=== PATIENT | female | born 1950 | race Caucasian/White ===

== ENCOUNTER 2016-10-26 13:12 | Inpatient (IN) | payer MEDICARE ==
[~2016-10-26] VITALS: Ht 175.3 cm; Wt 158.5 kg
[2016-10-27] MEDS ORDERED: ASPI1TAB69 PO (11:10)
[2016-10-27] MEDS ORDERED: LISI10TA3 PO (11:10)
[2016-10-27] MEDS ORDERED: CETI1CAP2 PO (11:10)
[2016-10-27] MEDS ORDERED: ATEN50TA PO (11:10)
[2016-11-06] VITALS (9 sets, daily range): BP systolic 104–130; BP diastolic 44–92; PULSE 66–80; RESP 12–18; TEMP 97.8–99.5; O2SAT 94–99
[2016-11-06] MEDS ORDERED: AMINOCAPROIC ACID INJ 250 MG/ML 20 ML VIAL IV ONE (05:00)
[2016-11-06] MEDS ORDERED: ARTIFICIAL TEARS OPTH OINT 3.5 APPLIC/3.5 GM TUBO ONE (05:00)
[2016-11-06] MEDS ORDERED: CALCIUM CHLORIDE 10% SOLN 1 GRAM/10 ML SYR IV ONE (05:00)
[2016-11-06] MEDS ORDERED: PROTAMINE SULFATE 250 MG/25 ML VIAL IV ONE (05:00)
[2016-11-06] MEDS ORDERED: ceFAZolin INJ 1,000 MG VIAL IV ONE ×2 (05:00→12:40)
[2016-11-06] MEDS ORDERED: HEPARIN SODIUM - SQ 10,000 UNITS/ML VIAL SQ ONE (05:00)
[2016-11-06] MEDS ORDERED: GLYCOPYRROLATE 0.2 MG/ML VIAL IV ONE (05:00)
[2016-11-06] MEDS ORDERED: NITROGLYCERIN-DEXTROSE INJ 250 ML IV ONE (05:00)
[2016-11-06] MEDS ORDERED: VECURONIUM BROMIDE 10 MG VIAL IV ONE (05:00)
[2016-11-06] MEDS ORDERED: MAGNESIUM SULFATE 1000 MG/2 ML VIAL (PED) IV ONE (05:00)
[2016-11-06] MEDS ORDERED: PROPOFOL 1000 MG/100 ML INJ 100 ML IV ONE (05:00)
[2016-11-06] MEDS ORDERED: ACETAMINOPHEN 1000 MG/100 ML VIAL IV ONE (05:00)
[2016-11-06] MEDS ORDERED: INSULIN HUMAN REGULAR 1,000 UNITS/10 ML VIAL SQ PRN (06:30)
[2016-11-06] MEDS ORDERED: METOPROLOL TARTRATE 25 MG TAB PO PRN (06:30)
[2016-11-06] MEDS ORDERED: ceFAZolin 2 GM PREMIX 50 ML ONE (06:32)
[2016-11-06] MEDS ORDERED: HEPARIN SODIUM - SQ 10,000 UNITS/ML VIAL ONE (06:32)
[2016-11-06] MEDS ORDERED: VANCOMYCIN HCL 1000 MG VIAL ONE (06:32)
[2016-11-06] MEDS ORDERED: BACT800T5 PO (06:34)
[2016-11-06] MEDS: LACTATED RINGER'S 1000 ML IV SCH (06:44)
[2016-11-06] MEDS: SODIUM CHLORID 0.9% 500 ML IV SCH (07:30)
[2016-11-06] MEDS ORDERED: INSULIN REGULAR (IV INFUSION) 100 UNITS in SODIUM CHLORIDE 0.9% INJ 100 ML IV ONE (07:45)
[2016-11-06] MEDS ORDERED: HEPARIN SODIUM - IV 10,000 UNITS/10 ML VIAL ONE (08:07)
[2016-11-06] MEDS ORDERED: CUSTODIOL HTK IRR SOLN 1,000 ML ONE (08:07)
[2016-11-06] MEDS ORDERED: POTASSIUM CHLORIDE 20 MEQ/10 ML VIAL ONE (08:07)
[2016-11-06] MEDS ORDERED: LIDOCAINE HCL 2% 100 MG/5 ML SYRINGE ONE (08:08)
[2016-11-06] MEDS ORDERED: CALCIUM CHLORIDE 10% SOLN 1 GRAM/10 ML SYR ONE (08:08)
[2016-11-06] MEDS ORDERED: ALBUMIN HUMAN 25% 12.5 GM/50 ML BAGP IV ONE (08:08)
[2016-11-06] MEDS ORDERED: MANNITOL INJ 50 ML ONE (08:09)
[2016-11-06] MEDS ORDERED: SODIUM BICARBONATE 8.4% INJ 50 ML ONE (08:09)
[2016-11-06] MEDS ORDERED: BUPIVACAINE LIPOSO PF 1.3% INJ 20 ML, DEXAMETHASONE INJ 4 MG in SODIUM CHLORIDE 0.9% IN... PERIART SCH (08:15)
[2016-11-06] MEDS ORDERED: KETOROLAC TROMETHAMINE 30 MG/ML (IVP) VIAL IV PUSH PRN (14:45)
[2016-11-06] MEDS ORDERED: NITROGLYCERIN-DEXTROSE INJ 250 ML IV SCH (14:45)
[2016-11-06] MEDS ORDERED: PHENYLEPHRINE INJ 40 MG in DEXTROSE 5% IN WATE 500 ML INJ 496 ML IV SCH ×2 (14:45)
[2016-11-06] MEDS ORDERED: ACETAMINOPHEN 650 MG SUPP RECTAL PRN (14:45)
[2016-11-06] MEDS ORDERED: hydrALAZINE HCL 20 MG/ML VIAL IV PRN (14:45)
[2016-11-06] MEDS ORDERED: DEXTROSE 50% IN WATER 50 ML VIAL(D50) IV PUSH PRN (14:45)
[2016-11-06] MEDS ORDERED: CLEVIDIPINE INJ 50 ML IV SCH (14:45)
[2016-11-06] MEDS ORDERED: EPINEPHrine (1:1000) INJ 4 MG in DEXTROSE 5% IN WATER INJ 246 ML IV SCH ×2 (14:45)
[2016-11-06] MEDS ORDERED: DEXMEDETOMIDINE INJ 50 ML IV SCH (14:45)
[2016-11-06] MEDS ORDERED: METOPROLOL TARTRATE 5 MG/5 ML VIAL IV PUSH PRN (14:45)
[2016-11-06] MEDS ORDERED: ACETAMINOPHEN 325 MG TAB PO PRN (14:45)
[2016-11-06] MEDS ORDERED: POTASSIUM CHLORIDE 20 MEQ CONTROLLED RELEASE TAB PO PRN ×2 (14:45)
[2016-11-06] MEDS ORDERED: Post-op Orders (for Pharmacy) MISC OTHER ONE (14:45)
[2016-11-06] MEDS ORDERED: POTASSIUM CHLOR 20 MEQ PREMIX 100 ML IV PRN ×3 (14:45)
[2016-11-06] MEDS ORDERED: oxyCODONE/ACETAMINOPHEN 5 MG/325 MG TAB PO PRN (14:45)
[2016-11-06] MEDS ORDERED: MEPERIDINE HCL 25 MG/ML VIAL IV PRN (14:45)
[2016-11-06] MEDS ORDERED: ALBUMIN HUMAN 5% 12.5 GM/250 ML BOTTLE IV PRN (14:45)
[2016-11-06] MEDS ORDERED: MAGNESIUM SULFATE INJ 2 GM in SODIUM CHLORIDE 0.9% INJ 100 ML IV PRN ×4 (14:45)
[2016-11-06] MEDS ORDERED: CALCIUM CHLORIDE 10% 1 GRAM/10 ML VIAL IV PRN (14:45)
[2016-11-06] MEDS ORDERED: INSULIN REGULAR (IV INFUSION) 100 UNITS in SODIUM CHLORIDE 0.9% INJ 99 ML IV SCH (14:45)
[2016-11-06] MEDS ORDERED: fentaNYL CITRATE 1000 MCG/20 ML VIAL ONE (15:40)
[2016-11-06] MEDS ORDERED: MIDAZOLAM HCL 5 MG/5 ML VIAL ONE (15:40)
[2016-11-06] MEDS: ACETAMINOPHEN 1000 MG/100 ML VIAL IV SCH ×2 (16:00→20:54)
[2016-11-06] MEDS: DOBUTamine PREMIX DRIP 250 ML IV SCH (16:00)
[2016-11-06] MEDS ORDERED: LACTATED RINGER'S 1000 ML INJ 500 ML IV PRN (16:00)
[2016-11-06] MEDS ORDERED: DOPamine INJ PREMIX 500 ML IV SCH (16:00)
--- NOTE | 2016-11-06 16:05 | RADRPT ---
EXAM DATE/TIME: 11/06/2016 15:30 [facility] COMPARISON: No previous studies available for comparison. INDICATIONS : S/p cabg. MEDICAL HISTORY : Hypercholesterolemia. Hypertension SURGICAL HISTORY : Left breast surgery. ENCOUNTER: Initial ACUITY: 1 day PAIN SCORE: Non-responsive. LOCATION: Bilateral chest FINDINGS: ET tube, nasogastric tube, central catheter, chest drain and mediastinal drains are noted. The heart is prominent. Mediastinum is unremarkable. There is no pneumothorax. CONCLUSION: 1. Satisfactory postoperative appearance to the chest. The heart remains enlarged. 2. There is no pneumothorax. Marcos Emery MD FACR on November 06, 2016 at 16:01 Board Certified Radiologist. This report was verified electronically.
[2016-11-06] MEDS ORDERED: RESP: ALBUTEROL 2.5 MG/IPRATROPIUM 0.5 MG NEB (PRN) NEB (16:15)
[2016-11-06] MEDS ORDERED: RESP: RACEPINEPHRINE 2.25% 0.5 ML NEB NEB PRN (16:15)
--- NOTE | 2016-11-06 16:46 | PD.OP ---
cc: Iva Tristan MD; Wing Renita Castellanos MD Operative Report Date of Surgery: Nov 06, 2016 Preoperative Diagnosis: Postoperative Diagnosis: Procedure: 1. Minimally Invasive AVR with a 23 Mosaic Cinch Tissue Valve 2. Left Percutaneous Femoral Arterial and Venous Cannulation for CPB 3. Intercostal Nerve Block 4. Perclose Arterial Closure . Surgeon: Iva Tristan . Envelope Addresser(s): Brooke Forte . Operation and Findings: PREOPERATIVE DIAGNOSIS: 1. Severe Aortic Valve Stenosis 2. Morbid Obesity POSTOPERATIVE DIAGNOSIS: Same PRPCEDURE: 1. Minimally Invasive AVR with a 23 Mosaic Cinch Tissue Valve 2. Left Percutaneous Femoral Arterial and Venous Cannulation for CPB 3. Intercostal Nerve Block 4. Perclose Arterial Closure ANESTHESIA: JAY Ross MD DIRECTOR OF FIELD SALES: Carlos Alberto Schwab [facility] INDICATIONS: This is a 66 yo patient with severe Aortic stenosis presenting for surgical correction of their underlying cardiac pathology. PROCEDURE: Standard monitoring lines and Xiao catheter were placed. General anesthesia was induced. The patient was prepped and draped in a sterile fashion. Percutaneous access was gained to the left femoral artery and vein. Two Perclose devices were placed on the artery for later closure. The patient was heparinized for cardiopulmonary bypass. The left femoral artery was cannulated with a 19 Biomedicus arterial cannula percutaneously using standard seldinger technique. Similarly, the left femoral vein was cannulated with a 21 [employer] cannula under PB guidance and the tip was confirmed to be in the SVC. A 6 cm right anterior thoracotomy was performed and the 3rd rib was shingled. The right internal mammary artery and vein were ligated and divided. An Mitul retractor was placed followed by a small chest retractor. The pericardium was opened and a pericardial sling was created using interrupted 0 silk sutures. A small 1 cm incision was made at the 6th intercostal space and an LV vent and pericardial suction were placed through this access port. The LV vent was placed through the Right Superior Pulmonary Vein. The aorta was dissected posteriorly for crossclamp placement. 2 L of antegrade Custodiol cardioplegia was infused directly into the aortic root. Additionally, hand-held coronary cardioplegia cannula was used during the procedure. The patient was placed on cardiopulmonary bypass. An aortic cross-clamp was applied and the heart was arrested using cold blood cardioplegia delivered through a 14F catheter. The aorta was opened above the sinotubular ridge and the aortic valve was exposed. The right and left coronary was directly cannulated in addition and cardioplegia was administered. On opening the aorta, the valve appeared rheumatic with severely calcified with retracted cusps. The valve was resected as well as all annular calcification and was sized for a 23 mm Medtronic Mosaic Cinch tissue valve which was placed with 2-0 pledgeted Tycron valve sutures. The valve seated well. The aorta was closed with two layers of running 4-0 Prolene suture, the first in a horizontal mattress fashion and the second layer of simple running. The patient was systemically rewarmed. The heart was vigorously deaired with a clamp on. Ventricular pacing wire was placed. The clamp was removed, deairing continued. Upon achieving normothermia and intrinsic cardiac activity, the patient was weaned from cardiopulmonary bypass. Strict hemostasis was assured and Protamine administered. Decannulation was carried out without incident and both the femoral artery was closed with the Perclose devices. The entry site to the vein was closed with a horizontal mattress suture of 2-0 Silk following manual pressure. There was no adverse reaction. Intraoperative PB following the procedure showed a well-seated aortic valve with no perivalvular leak and preserved ventricular function. A-24 Japanese Keshav drain and a [address] were positioned in the pericardium and right pleural space respectively and secured with 2-0 silk sutures. The 3rd rib was reapproximated to the sternum using a [id number] 0 Ethibond stitch, and to the adjacent rib with a 0 Vicryl suture. Intercostal nerve block was preformed at the level of the incision as well as 2 rib spaces abpve and below using Exparel solution. The fascia and pectoralis were closed with 0 Vicryl. The subcutaneous tissue was closed using a running 3-0 Monocryl suture. The skin was closed with 4-0 Monocryl. Sterile dressings were placed. At the end of the operation, all sponge, instruments, and needle counts were correct. The patient was transferred to the CVICU in stable condition. Iva Tristan MD Nov 06, 2016 16:45
[2016-11-06] MEDS: ONDANSETRON HCL 4 MG/2 ML VIAL IV PUSH PRN (16:55)
[2016-11-06] MEDS: CALCIUM CHLORIDE INJ 1 GM in SODIUM CHLORIDE 0.9% INJ 100 ML IV PRN ×2 (16:55→21:32)
[2016-11-06] MEDS: PROCHLORPERAZINE INJ 10 MG/2 ML VIAL IV PRN (17:32)
[2016-11-06] MEDS ORDERED: PHENYLEPHRINE HCL 10 MG/ML VIAL ONE (17:54)
[2016-11-06] MEDS: MORPHINE SULFATE 4 MG/ML INJ IV PRN ×3 (19:32→22:53)
[2016-11-06] MEDS: ceFAZolin 2 GM PREMIX 50 ML IV SCH (19:32)
[2016-11-06] MEDS: AMIODARONE 200 MG TAB PO SCH (20:01)
[2016-11-06] MEDS: ALPRAZolam 0.25 MG TAB PO PRN (20:53)
[2016-11-06] MEDS: RESP: ALBUTEROL 2.5 MG/IPRATROPIUM 0.5 MG NEB (SCH) NEB (21:55)
[2016-11-07] VITALS (16 sets, daily range): BP systolic 107–142; BP diastolic 54–67; PULSE 68–78; RESP 18–20; TEMP 97.8–98.7; O2SAT 94–98
[2016-11-07] MEDS: SODIUM CHLORID 0.9% 500 ML IV SCH (00:10)
[2016-11-07] MEDS: DOBUTamine PREMIX DRIP 250 ML IV SCH (02:44)
[2016-11-07] MEDS: ACETAMINOPHEN 1000 MG/100 ML VIAL IV SCH ×2 (03:52→09:48)
[2016-11-07] MEDS: ceFAZolin 2 GM PREMIX 50 ML IV SCH ×3 (03:52→21:07)
[2016-11-07] MEDS: RESP: ALBUTEROL 2.5 MG/IPRATROPIUM 0.5 MG NEB (SCH) NEB ×3 (04:10→19:00)
[2016-11-07 04:42] LABS: MEAN CELL VOLUME 83.3 FL (80.0-100.0); MEAN CORPUSCULAR HEMOGLOBIN 27.4 PG (27.0-34.0); MEAN CORPUSCULAR HGB CONC 32.9 % (32.0-36.0); PLATELET COUNT 132 TH/MM3 (150-450); RED BLOOD COUNT 3.96 MIL/MM3 (4.00-5.30); RED CELL DISTRIBUTION WIDTH 14.5 % (11.6-17.2); REVIEW FLAG FINAL; WHITE BLOOD COUNT 15.9 TH/MM3 (4.0-11.0)
[2016-11-07 05:05] LABS: BICARBONATE 26.8 MEQ/L (21.0-32.0); MAGNESIUM 2.5 MG/DL (1.5-2.5); POTASSIUM 4.9 MEQ/L (3.5-5.1)
--- NOTE | 2016-11-07 05:19 | RADRPT ---
EXAM DATE/TIME: 11/07/2016 03:31 [facility] COMPARISON: CHEST SINGLE AP, November 06, 2016, 15:30. INDICATIONS : Status post CABG. MEDICAL HISTORY : Hypercholesterolemia. Hypertension. SURGICAL HISTORY : Left breast surgery. ENCOUNTER: Subsequent ACUITY: 2 days PAIN SCORE: Non-responsive. LOCATION: Bilateral chest FINDINGS: Central line superior vena cava. Right chest tube present without pneumothorax. Endotracheal tube and nasogastric tube have been removed. Cardiomegaly. No effusion. CONCLUSION: 1. Left central line tip in superior vena cava. Right chest tube present without pneumothorax. Cardio megaly. Basilar and dependent airspace disease in the lungs. Colby Sesay MD on November 07, 2016 at 5:14 Board Certified Radiologist. This report was verified electronically.
[2016-11-07] MEDS: PANTOPRAZOLE SOD 40 MG DELAYED RELEASE TAB PO SCH (05:56)
[2016-11-07] MEDS: ONDANSETRON HCL 4 MG/2 ML VIAL IV PUSH PRN (05:56)
[2016-11-07] MEDS: PROCHLORPERAZINE INJ 10 MG/2 ML VIAL IV PRN (06:07)
[2016-11-07] MEDS: LACTATED RINGER'S 1000 ML IV SCH (07:30)
[2016-11-07] MEDS: ALPRAZolam 0.25 MG TAB PO PRN ×2 (08:55→22:56)
[2016-11-07] MEDS: ASPIRIN 81 MG CHEW TAB PO SCH (08:55)
[2016-11-07] MEDS: AMIODARONE 200 MG TAB PO SCH ×2 (08:55→21:06)
[2016-11-07] MEDS ORDERED: GLUCAGON 1 MG/ML VIAL OTHER PRN (09:15)
[2016-11-07] MEDS ORDERED: DEXTROSE 50% IN WATER 50 ML VIAL(D50) IV PRN (09:15)
[2016-11-07] MEDS ORDERED: BISACODYL 10 MG SUPP RECTAL PRN (09:15)
[2016-11-07] MEDS ORDERED: SOD PHOSPHATE/SOD BIPHOSPHATE (ADULT) ENEMA 133ML RECTAL PRN (09:15)
--- NOTE | 2016-11-07 09:43 | PD.CAR.PN ---
CVT Progress Note CVT: POD #: 1 Subjective/Hospital Course: 66/ female with severe / eval in our UF office / elective Mini AVR PMH: morbid obesity BMI 53, anxiety, HTN, recent UTI ( on bactrim) surgery : 11/06 Mini AVR #23mm mosaic tissue valve extubated after surgery crystalloid 3000/ 750cc cell saver, EBL 250cc 11/07 up in chair, doing well , weaned off bety gtt this am recheck UA, then dc cain cath will need dietary consult aggressive pulm toileting Objective: GENERAL: SKIN: Warm and dry./ incision intact right upper chest wall/ CT x 2 right upper chest HEAD: Normocephalic. EYES: No scleral icterus. No injection or drainage. NECK: Supple, trachea midline. No JVD or lymphadenopathy. CARDIOVASCULAR: Regular rate and rhythm without murmurs, gallops, or rubs. general edema RESPIRATORY: Breath sounds equal bilaterally. No accessory muscle use. chest tube to wall suction, small intermittent air leak GASTROINTESTINAL: Abdomen soft, non-tender, nondistended. MUSCULOSKELETAL: No cyanosis, or edema. BACK: Nontender without obvious deformity. No CVA tenderness. Vital Signs Date Time Temp Pulse Resp B/P Pulse Ox O2 Delivery O2 Flow Rate FiO2 11/07/16 08:00 95 Nasal Cannula 4.00 11/07/16 07:37 94 Nasal Cannula 3.00 11/07/16 07:00 76 11/07/16 07:00 97.8 76 18 120/54 95 142/57 11/07/16 04:00 74 11/07/16 04:00 96 Nasal Cannula 4.00 11/07/16 02:16 20 11/07/16 01:35 20 11/07/16 00:00 98 Nasal Cannula 6.00 11/06/16 23:00 97.8 74 18 126/60 96 113/46 11/06/16 21:55 99 Nasal Cannula 5.00 11/06/16 21:30 18 11/06/16 20:00 98 Nasal Cannula 6.00 11/06/16 19:40 20 11/06/16 19:00 98.6 68 18 104/44 98 112/92 11/06/16 16:30 96 Nasal Cannula 6.00 11/06/16 16:25 96 Nasal Cannula 6.00 11/06/16 16:25 96 Nasal Cannula 6 11/06/16 16:20 94 Nasal Cannula 4.00 11/06/16 16:07 98 40 11/06/16 15:34 99 60 11/06/16 15:27 97 60 11/06/16 15:20 60 11/06/16 15:20 80 11/06/16 15:20 98.6 80 12 126/67 99 130/63 Labs: Laboratory Tests Test 11/07/16 04:35 White Blood Count 15.9 TH/MM3 (4.0-11.0) Red Blood Count 3.96 MIL/MM3 (4.00-5.30) Hemoglobin 10.9 GM/DL (11.6-15.3) Hematocrit 33.0 % (35.0-46.0) Mean Corpuscular Volume 83.3 FL (80.0-100.0) Mean Corpuscular Hemoglobin 27.4 PG (27.0-34.0) Mean Corpuscular Hemoglobin 32.9 % Concent (32.0-36.0) Red Cell Distribution Width 14.5 % (11.6-17.2) Platelet Count 132 TH/MM3 (150-450) Mean Platelet Volume 9.4 FL (7.0-11.0) Sodium Level 142 MEQ/L (136-145) Potassium Level 4.9 MEQ/L (3.5-5.1) Chloride Level 107 MEQ/L (98-107) Carbon Dioxide Level 26.8 MEQ/L (21.0-32.0) Anion Gap 8 MEQ/L (5-15) Blood Urea Nitrogen 23 MG/DL (7-18) Creatinine 1.11 MG/DL (0.50-1.00) Estimat Glomerular Filtration 49 ML/MIN (>89) Rate Random Glucose 102 MG/DL (74-106) Calcium Level 8.0 MG/DL (8.5-10.1) Magnesium Level 2.5 MG/DL (1.5-2.5) Result Diagram: 11/07/1643411/07/16434 Telemetry: NSR (1) Aortic stenosis (2) S/P AVR (aortic valve replacement) Plan: ASA pulm toileting OOB, ambulate CM to eval discharge planning (3) Hypertension Plan: weaned off bety/ start low dose BB this pm (4) Morbid obesity with BMI of 50.0-59.9, adult Plan: dietary consult heart healthy diet (5) Blood loss anemia Plan: HGB 10.9/ will monitor Jennifer Shaikh Nov 07, 2016 09:43
[2016-11-07] MEDS ORDERED: PILL SPLITTER OTHER PRN (09:45)
[2016-11-07 09:57] LABS: BLOOD, URINE NEG (NEG); GLUCOSE,URINE NEG (NEG); HYALINE CAST, URINE 2 /lpf (RARE); KETONE, URINE TRACE mg/dL (NEG); MUCUS URINE FEW /lpf (OCC); NITRITE,URINE NEG (NEG); PH, URINE 5.5 (5.0-8.5); SQUAMOUS EPITHELIAL CELL URINE <1 /hpf (0-5); URINE COLOR YELLOW (YELLW/STRAW)
[2016-11-07 09:59] LABS: COMMENT (UR) CATH-CULT NOT IND; CULTURE IF INDICATED CATH CULTURE NOT IND
[2016-11-07] MEDS: INSULIN ASPART SUPPLEMENTAL SCALE SQ SCH ×4 (10:00→21:07)
[2016-11-07] MEDS: METOCLOPRAMIDE HCL 10 MG/2 ML VIAL IV SCH ×3 (11:48→22:56)
[2016-11-07] MEDS: diphenhydrAMINE HCL 25 MG CAP PO PRN (16:13)
[2016-11-07] MEDS: oxyCODONE/ACETAMINOPHEN 5 MG/325 MG TAB PO PRN (18:06)
[2016-11-07] MEDS: DOCUSATE SODIUM 100 MG CAP PO SCH (21:06)
[2016-11-07] MEDS: SENNOSIDES 8.6 MG TAB PO SCH (21:06)
[2016-11-07] MEDS: METOPROLOL TARTRATE 25 MG TAB PO SCH (21:07)
[2016-11-08] VITALS (29 sets, daily range): BP systolic 110–153; BP diastolic 55–68; PULSE 63–88; RESP 16–18; TEMP 97.4–98.7; O2SAT 93–99
[2016-11-08] MEDS: oxyCODONE/ACETAMINOPHEN 5 MG/325 MG TAB PO PRN ×2 (01:03→04:54)
[2016-11-08] MEDS: INSULIN ASPART SUPPLEMENTAL SCALE SQ SCH ×6 (02:00→22:00)
[2016-11-08] MEDS: ceFAZolin 2 GM PREMIX 50 ML IV SCH (04:46)
[2016-11-08] MEDS: METOCLOPRAMIDE HCL 10 MG/2 ML VIAL IV SCH (05:24)
[2016-11-08] MEDS: PANTOPRAZOLE SOD 40 MG DELAYED RELEASE TAB PO SCH (05:24)
[2016-11-08 06:28] LABS: AUTOMATED NEUTROPHIL # 13.5 TH/MM3 (1.8-7.7); BASOPHIL % 0.1 % (0.0-2.0); EOSINOPHIL % 0.2 % (0.0-4.0); HEMATOCRIT 29.9 % (35.0-46.0); HEMO FLAGS DIFF FINAL; LYMPH % 6.4 % (9.0-44.0); LYMPHOCYTE # 1.1 TH/MM3 (1.0-4.8); MEAN CELL VOLUME 84.2 FL (80.0-100.0); MEAN CORPUSCULAR HEMOGLOBIN 28.1 PG (27.0-34.0); MEAN CORPUSCULAR HGB CONC 33.4 % (32.0-36.0); MONO % 11.7 % (0.0-8.0); NEUT % 81.6 % (16.0-70.0); PLATELET COUNT 138 TH/MM3 (150-450); RED BLOOD COUNT 3.55 MIL/MM3 (4.00-5.30); RED CELL DISTRIBUTION WIDTH 14.9 % (11.6-17.2); WHITE BLOOD COUNT 16.6 TH/MM3 (4.0-11.0)
[2016-11-08 06:42] LABS: BICARBONATE 29.1 MEQ/L (21.0-32.0); MAGNESIUM 2.2 MG/DL (1.5-2.5); POTASSIUM 4.7 MEQ/L (3.5-5.1)
[2016-11-08] MEDS: LACTATED RINGER'S 1000 ML IV SCH (07:30)
[2016-11-08] MEDS: RESP: ALBUTEROL 2.5 MG/IPRATROPIUM 0.5 MG NEB (SCH) NEB ×3 (07:34→19:11)
--- NOTE | 2016-11-08 08:04 | EKG ---
Date Performed: 11/07/2016 Time Performed: 04:43:48 PTAGE: 66 years EKG: Sinus rhythm . Possible inferior infarct - age undetermined Abnormal ECG Compared to PREVIOUS TRACING , the criteria for the LVH is no longer evident. The criterial for the p ossible prior infarct is presently more convincing. PREVIOUS TRACIN10/27/2016 10.56 DOCTOR: Anisha Brown Interpretating Date/Time 11/08/2016 08:03:17
[2016-11-08] MEDS: ONDANSETRON HCL 4 MG/2 ML VIAL IV PUSH PRN (08:11)
[2016-11-08] MEDS: MAGNESIUM HYDROXIDE SUSP 30 ML CUP PO SCH ×2 (09:00→09:40)
[2016-11-08] MEDS: MULTIVITAMINS/MINERALS THERAPEUTIC TAB PO SCH ×2 (09:00→09:39)
[2016-11-08] MEDS: POLYETHYLENE GLYCOL 17 GM PKG PO SCH ×2 (09:00→09:40)
[2016-11-08] MEDS: AMIODARONE 200 MG TAB PO SCH (09:38)
[2016-11-08] MEDS: METOPROLOL TARTRATE 25 MG TAB PO SCH ×2 (09:38→20:23)
[2016-11-08] MEDS: DOCUSATE SODIUM 100 MG CAP PO SCH ×2 (09:38→20:23)
[2016-11-08] MEDS: ASPIRIN 81 MG CHEW TAB PO SCH (09:39)
[2016-11-08] MEDS: PROCHLORPERAZINE INJ 10 MG/2 ML VIAL IV PRN (10:30)
[2016-11-08] MEDS ORDERED: CARDIOPLEGIC IRR 2,000 ML IRRIGATION ONE (12:00)
--- NOTE | 2016-11-08 12:44 | PD.CAR.PN ---
CVT Progress Note Subjective/Hospital Course: 66/ female with severe / eval in our UF office / elective Mini AVR PMH: morbid obesity BMI 53, anxiety, HTN, recent UTI ( on bactrim) surgery : 11/06 Mini AVR #23mm mosaic tissue valve extubated after surgery crystalloid 3000/ 750cc cell saver, EBL 250cc 11/07 up in chair, doing well , weaned off bety gtt this am recheck UA, then dc cain cath will need dietary consult aggressive pulm toileting 11/08 repeat UA ok did not want cain removed last evening, 2/2 severe nausea had some nausea and vomiting this am, some improvement with antiemetics eval meds hold amiodarone for now dc cain cath, ambulate / + 8 kg/ will need diuresis./ but will hold off for now with nausea/ vomiting chest tube 130cc/ 12 re-eval for possible removal later today Objective: GENERAL: SKIN: Warm and dry.incision intact right chest wall / HEAD: Normocephalic. EYES: No scleral icterus. No injection or drainage. NECK: Supple, trachea midline. No JVD or lymphadenopathy. CARDIOVASCULAR: Regular rate and rhythm without murmurs, gallops, or rubs. RESPIRATORY: Breath sounds equal bilaterally. No accessory muscle use. chest tube x 2 intact/ dressing changed / + air leak in chamber/ drained 123cc/ 12 hrs GASTROINTESTINAL: Abdomen soft, non-tender, nondistended. MUSCULOSKELETAL: No cyanosis, or edema. BACK: Nontender without obvious deformity. No CVA tenderness. Vital Signs Date Time Temp Pulse Resp B/P Pulse Ox O2 Delivery O2 Flow Rate FiO2 11/08/16 11:23 68 11/08/16 11:23 98.7 69 16 123/64 99 11/08/16 11:23 99 Nasal Cannula 3.00 11/08/16 11:23 68 11/08/16 10:55 98.6 69 16 110/55 93 11/08/16 10:36 67 11/08/16 09:11 70 11/08/16 08:25 98 Nasal Cannula 3.00 11/08/16 08:10 68 11/08/16 07:35 64 11/08/16 07:10 97.4 65 16 125/68 95 11/08/16 07:10 63 11/08/16 06:12 63 11/08/16 05:00 72 11/08/16 04:00 Nasal Cannula 3.00 40 11/08/16 04:00 72 11/08/16 03:00 98.1 66 153/64 95 11/08/16 03:00 68 11/08/16 02:00 74 11/08/16 01:00 76 11/08/16 00:13 Nasal Cannula 3.00 40 11/08/16 00:00 78 11/07/16 23:00 75 11/07/16 23:00 98.7 78 133/67 94 11/07/16 22:00 72 11/07/16 21:00 76 11/07/16 20:00 Nasal Cannula 3.00 40 11/07/16 20:00 76 11/07/16 19:00 97 Nasal Cannula 3.00 11/07/16 19:00 98.6 77 120/64 94 11/07/16 19:00 77 11/07/16 18:00 77 11/07/16 17:00 76 11/07/16 16:55 94 Nasal Cannula 2.00 11/07/16 16:00 72 11/07/16 15:30 94 Nasal Cannula 2.00 11/07/16 15:30 98.3 76 20 115/57 94 11/07/16 15:00 73 11/07/16 14:00 74 11/07/16 13:34 73 18 107/56 97 Labs: Laboratory Tests Test 11/08/16 05:30 White Blood Count 16.6 TH/MM3 (4.0-11.0) Red Blood Count 3.55 MIL/MM3 (4.00-5.30) Hemoglobin 10.0 GM/DL (11.6-15.3) Hematocrit 29.9 % (35.0-46.0) Mean Corpuscular Volume 84.2 FL (80.0-100.0) Mean Corpuscular Hemoglobin 28.1 PG (27.0-34.0) Mean Corpuscular Hemoglobin 33.4 % Concent (32.0-36.0) Red Cell Distribution Width 14.9 % (11.6-17.2) Platelet Count 138 TH/MM3 (150-450) Mean Platelet Volume 9.5 FL (7.0-11.0) Neutrophils (%) (Auto) 81.6 % (16.0-70.0) Lymphocytes (%) (Auto) 6.4 % (9.0-44.0) Monocytes (%) (Auto) 11.7 % (0.0-8.0) Eosinophils (%) (Auto) 0.2 % (0.0-4.0) Basophils (%) (Auto) 0.1 % (0.0-2.0) Neutrophils # (Auto) 13.5 TH/MM3 (1.8-7.7) Lymphocytes # (Auto) 1.1 TH/MM3 (1.0-4.8) Monocytes # (Auto) 1.9 TH/MM3 (0-0.9) Eosinophils # (Auto) 0.0 TH/MM3 (0-0.4) Basophils # (Auto) 0.0 TH/MM3 (0-0.2) CBC Comment DIFF FINAL Differential Comment Sodium Level 139 MEQ/L (136-145) Potassium Level 4.7 MEQ/L (3.5-5.1) Chloride Level 105 MEQ/L (98-107) Carbon Dioxide Level 29.1 MEQ/L (21.0-32.0) Anion Gap 5 MEQ/L (5-15) Blood Urea Nitrogen 33 MG/DL (7-18) Creatinine 1.14 MG/DL (0.50-1.00) Estimat Glomerular Filtration 48 ML/MIN (>89) Rate Random Glucose 117 MG/DL (74-106) Calcium Level 8.2 MG/DL (8.5-10.1) Magnesium Level 2.2 MG/DL (1.5-2.5) Result Diagram: 11/08/1652911/08/16529 (1) Aortic stenosis (2) S/P AVR (aortic valve replacement) Plan: ASA, BB pulm toileting OOB, ambulate CM to eval discharge planning (3) Hypertension Plan: low dose BB (4) Morbid obesity with BMI of 50.0-59.9, adult Plan: dietary consult heart healthy diet (5) Blood loss anemia Plan: HGB 10.9/ will monitor (6) Nausea & vomiting Plan: antiemetics/ hold amiodarone Jennifer Shaikh Nov 08, 2016 12:44
[2016-11-08] MEDS: METOCLOPRAMIDE HCL 10 MG/2 ML VIAL IV PRN (13:04)
[2016-11-08] MEDS ORDERED: ACETAMINOPHEN/HYDROcodone 325 MG/5 MG TAB PO PRN (13:45)
[2016-11-08] MEDS: ACETAMINOPHEN/HYDROcodone 325 MG/5 MG TAB PO PRN (20:23)
[2016-11-08] MEDS: SENNOSIDES 8.6 MG TAB PO SCH (20:23)
[2016-11-09] VITALS (33 sets, daily range): BP systolic 103–164; BP diastolic 50–86; PULSE 53–144; RESP 18–20; TEMP 98–99.4; O2SAT 93–100
[2016-11-09] MEDS: INSULIN ASPART SUPPLEMENTAL SCALE SQ SCH ×4 (02:00→21:00)
[2016-11-09] MEDS: ACETAMINOPHEN/HYDROcodone 325 MG/5 MG TAB PO PRN ×2 (02:20→20:09)
[2016-11-09] MEDS: PANTOPRAZOLE SOD 40 MG DELAYED RELEASE TAB PO SCH (04:46)
[2016-11-09] MEDS: ALPRAZolam 0.25 MG TAB PO PRN ×2 (05:11→20:06)
[2016-11-09 05:37] LABS: AUTOMATED NEUTROPHIL # 9.9 TH/MM3 (1.8-7.7); BASOPHIL % 0.2 % (0.0-2.0); EOSINOPHIL # 0.3 TH/MM3 (0-0.4); EOSINOPHIL % 2.6 % (0.0-4.0); HEMATOCRIT 29.1 % (35.0-46.0); HEMO FLAGS DIFF FINAL; LYMPH % 9.1 % (9.0-44.0); LYMPHOCYTE # 1.2 TH/MM3 (1.0-4.8); MEAN CELL VOLUME 84.3 FL (80.0-100.0); MEAN CORPUSCULAR HEMOGLOBIN 27.5 PG (27.0-34.0); MEAN CORPUSCULAR HGB CONC 32.6 % (32.0-36.0); MONO % 10.2 % (0.0-8.0); NEUT % 77.9 % (16.0-70.0); PLATELET COUNT 142 TH/MM3 (150-450); RED BLOOD COUNT 3.45 MIL/MM3 (4.00-5.30); RED CELL DISTRIBUTION WIDTH 14.8 % (11.6-17.2); WHITE BLOOD COUNT 12.7 TH/MM3 (4.0-11.0)
[2016-11-09] MEDS ORDERED: METOPROLOL TARTRATE 25 MG TAB PO SCH (05:45)
[2016-11-09 05:49] LABS: BICARBONATE 29.5 MEQ/L (21.0-32.0); POTASSIUM 4.5 MEQ/L (3.5-5.1)
--- NOTE | 2016-11-09 06:00 | RADRPT ---
EXAM DATE/TIME: 11/09/2016 04:15 [facility] COMPARISON: CHEST SINGLE AP, November 07, 2016, 3:31. INDICATIONS : Shortness of breath, possible pulmonary disease. MEDICAL HISTORY : Hypercholesterolemia. Hypertension SURGICAL HISTORY : None. ENCOUNTER: Subsequent ACUITY: 4 - 6 days PAIN SCORE: 0/10 LOCATION: Bilateral chest FINDINGS: Left central line tip in superior vena cava. Right-sided chest tube present without pneumothorax. Sli ght increase in left basilar airspace disease since November 07. Subsegmental right basilar opacity is s table. CONCLUSION: 1. Basilar airspace disease similar to November 07. Right chest tube and left central line unchanged. Colby Sesay MD on November 09, 2016 at 5:57 Board Certified Radiologist. This report was verified electronically.
[2016-11-09] MEDS: RESP: ALBUTEROL 2.5 MG/IPRATROPIUM 0.5 MG NEB (SCH) NEB (08:28)
[2016-11-09] MEDS: METOPROLOL TARTRATE 25 MG TAB PO SCH ×2 (09:00→20:06)
[2016-11-09] MEDS: POLYETHYLENE GLYCOL 17 GM PKG PO SCH (09:00)
[2016-11-09] MEDS: MAGNESIUM HYDROXIDE SUSP 30 ML CUP PO SCH (09:00)
[2016-11-09] MEDS: ONDANSETRON HCL 4 MG/2 ML VIAL IV PUSH PRN (09:06)
[2016-11-09] MEDS: DOCUSATE SODIUM 100 MG CAP PO SCH ×2 (09:17→20:07)
[2016-11-09] MEDS: MULTIVITAMINS/MINERALS THERAPEUTIC TAB PO SCH (09:17)
[2016-11-09] MEDS: ASPIRIN 81 MG CHEW TAB PO SCH (09:17)
[2016-11-09] MEDS ORDERED: POTASSIUM CHLORIDE 10 MEQ CAP PO ONE (14:15)
[2016-11-09] MEDS ORDERED: FUROSEMIDE 40 MG/4 ML VIAL IV PUSH ONE (14:15)
--- NOTE | 2016-11-09 14:19 | PD.CAR.PN ---
CVT Progress Note CVT: POD #: 2 Subjective/Hospital Course: 66/ female with severe / eval in our UF office / elective Mini AVR PMH: morbid obesity BMI 53, anxiety, HTN, recent UTI ( on bactrim) surgery : 11/06 Mini AVR #23mm mosaic tissue valve extubated after surgery crystalloid 3000/ 750cc cell saver, EBL 250cc 11/07 up in chair, doing well , weaned off bety gtt this am recheck UA, then dc cain cath will need dietary consult aggressive pulm toileting 11/08 repeat UA ok did not want cain removed last evening, 2/2 severe nausea had some nausea and vomiting this am, some improvement with antiemetics eval meds hold amiodarone for now dc cain cath, ambulate / + 8 kg/ will need diuresis./ but will hold off for now with nausea/ vomiting chest tube 130cc/ 12 re-eval for possible removal later today 11/09 #24cm chest tube removed/ # [address]/ vaseline gauze dressing applied still has small air leak, CXR no PTX this am / on suction pt had episode of afib last pm, resume po amiodarone recheck lytes in am gentle diuresis , still has some intermittent nausea Objective: Vital Signs Date Time Temp Pulse Resp B/P Pulse Ox O2 Delivery O2 Flow Rate FiO2 11/09/16 13:01 80 11/09/16 12:00 80 11/09/16 11:45 99.4 80 20 156/76 93 11/09/16 11:45 95 Nasal Cannula 3.00 11/09/16 11:01 90 11/09/16 10:00 86 11/09/16 09:00 80 11/09/16 08:45 98.9 53 20 103/57 94 11/09/16 08:45 95 Nasal Cannula 3.00 11/09/16 08:30 96 Nasal Cannula 4.00 11/09/16 08:26 98.2 80 20 153/78 99 11/09/16 08:00 72 11/09/16 07:00 68 11/09/16 06:00 138 11/09/16 05:00 78 11/09/16 04:50 144 11/09/16 04:00 74 11/09/16 03:31 96 Nasal Cannula 3.00 11/09/16 03:18 73 11/09/16 02:00 73 11/09/16 01:00 68 11/09/16 00:00 72 11/09/16 00:00 98.0 70 18 108/50 99 11/09/16 00:00 96 Nasal Cannula 3.00 11/08/16 23:00 72 11/08/16 22:00 73 11/08/16 21:00 78 11/08/16 20:00 74 11/08/16 20:00 95 Nasal Cannula 3.00 11/08/16 20:00 98.0 88 18 142/62 99 11/08/16 19:11 99 Nasal Cannula 3.00 11/08/16 19:00 66 11/08/16 18:06 70 11/08/16 17:45 99 Nasal Cannula 3.00 11/08/16 17:07 73 11/08/16 16:53 18 11/08/16 16:01 78 11/08/16 15:51 95 Nasal Cannula 3.00 11/08/16 15:51 76 11/08/16 15:51 98.0 78 16 144/64 99 11/08/16 14:16 78 Labs: Laboratory Tests Test 11/09/16 04:50 White Blood Count 12.7 TH/MM3 (4.0-11.0) Red Blood Count 3.45 MIL/MM3 (4.00-5.30) Hemoglobin 9.5 GM/DL (11.6-15.3) Hematocrit 29.1 % (35.0-46.0) Mean Corpuscular Volume 84.3 FL (80.0-100.0) Mean Corpuscular Hemoglobin 27.5 PG (27.0-34.0) Mean Corpuscular Hemoglobin 32.6 % Concent (32.0-36.0) Red Cell Distribution Width 14.8 % (11.6-17.2) Platelet Count 142 TH/MM3 (150-450) Mean Platelet Volume 9.4 FL (7.0-11.0) Neutrophils (%) (Auto) 77.9 % (16.0-70.0) Lymphocytes (%) (Auto) 9.1 % (9.0-44.0) Monocytes (%) (Auto) 10.2 % (0.0-8.0) Eosinophils (%) (Auto) 2.6 % (0.0-4.0) Basophils (%) (Auto) 0.2 % (0.0-2.0) Neutrophils # (Auto) 9.9 TH/MM3 (1.8-7.7) Lymphocytes # (Auto) 1.2 TH/MM3 (1.0-4.8) Monocytes # (Auto) 1.3 TH/MM3 (0-0.9) Eosinophils # (Auto) 0.3 TH/MM3 (0-0.4) Basophils # (Auto) 0.0 TH/MM3 (0-0.2) CBC Comment DIFF FINAL Differential Comment Sodium Level 138 MEQ/L (136-145) Potassium Level 4.5 MEQ/L (3.5-5.1) Chloride Level 102 MEQ/L (98-107) Carbon Dioxide Level 29.5 MEQ/L (21.0-32.0) Anion Gap 7 MEQ/L (5-15) Blood Urea Nitrogen 34 MG/DL (7-18) Creatinine 0.91 MG/DL (0.50-1.00) Estimat Glomerular Filtration 62 ML/MIN (>89) Rate Random Glucose 95 MG/DL (74-106) Calcium Level 8.2 MG/DL (8.5-10.1) Result Diagram: 11/09/1644911/09/16449 Telemetry: AFIB> NSR (1) Aortic stenosis (2) S/P AVR (aortic valve replacement) Plan: ASA, BB , amiodarone on left medial chest tube removal tomorrow chest tube removed, eval for pulm toileting gentle diuresis today OOB, ambulate CM to eval discharge planning (3) Hypertension Plan: increase BB (4) Morbid obesity with BMI of 50.0-59.9, adult Plan: dietary consult heart healthy diet (5) Blood loss anemia Plan: > 9.5 HGB 10.9/ will monitor (6) Nausea & vomiting Plan: antiemetics/ improving Jennifer Shaikh Nov 09, 2016 14:19
--- NOTE | 2016-11-09 14:21 | HHI.FF ---
Face to Face Verification Diagnosis: (1) Blood loss anemia (2) Aortic stenosis (3) Hypertension (4) Morbid obesity with BMI of 50.0-59.9, adult (5) S/P AVR (aortic valve replacement) Physical Therapy Order: Evaluate and Treat Home Health Nursing Order: Signs/symptoms of disease process Wound care and dressing changes Nursing assessment with vital signs Instructions: Incentive spirometry Q1 hr x 10, while awake, also use acapella device hourly whole awake Sternal Breast Bone Precautions: NO pushing or pulling, ( pt must use sternal pillow to support chest with all activities and with coughing ( takes up to 3 months breast bone to heal ) Daily incision care: ok to shower daily, no tub bath. Wash all incisions with liquid dial soap, clean wash cloth to each site, rinse and pat dry. Observe for any signs of infection, such as drainage which is dark yellow, franklin, green or foul smelling. Immediately report to the surgeon any drainage from the chest incision, or legs, and for any abnormal drainage from the chest tube sites. Notify surgeon if any temp >101.5 degrees F. When specialty dressing removed/ or if you do not have one, continue to shower daily as above, then rinse and pat incision dry and paint with betadine daily x 5 days. Allow steri strips to fall off if you have any. Avoid lotions, creams, salves, oils, etc. for the first month__ F/U appointment: as per [place] instructions: PCP in 2 weeks, CV surgeon 2weeks, Debridging Machine Operator 3-4 weeks For any questions regarding incisions/ dressing / meds / post op care or above Symptoms, Sunday 8am-5pm Heart & Vascular Surgery Office ( Dr. Tristan & Dr. Banegas), After Hours / Nights (5pm -8am) Weekends and Holidays Please call [facility] ([facility]) Charge Nurse Heart and Vascular Surgery patients *Special attention to sternal dressing Mandatory frequency Assess and evaluation, 4 days in a row The next week 3X week 2 times a week for 4 weeks 1 time a week for 5 weeks Schedule Heart and Vascular patients for full 60 day certification period Initial visit Review Open Heart Surgery Discharge Instructions (Sternal precautions, Activity, Elastic hose, Incision care, Driving, Incentive spirometry, Smoking, Admire, Work and other) Need Betadine to paint incision Medication reconciliation Importance of follow up care/ check on appointments Make calendar record temperature daily When to call [facility] nurse, review instructions, phone list Incentive Spirometry, demonstration Visit 1- Begin discharge instruction for patient family and/ or caregiver using teach back method- Signs and symptoms of infection Disease characteristics Medicines and side effects Foods and nutrition/ appetite Infection control/ hand washing/ hygiene Visit 2- Continue teaching Discharge instructions- include additional information on smoking cessation , sternal dressing (sternal vac) Visit 3- Continue teaching- Cough and deep breathing, incision monitoring. Choose my plate Visit 4- Continue teaching- Discuss limitations Discuss how they are feeling Discuss progress toward goals Remaining visits- continue teaching and monitoring I have seen patient Margaret Wray on 11/09/16. My clinical findings support the need for the requested home health care services because: Deconditioned w/ increased weakness I certify that my clinical findings support that this patient is homebound because: Post-op weakness Jennifer Shaikh Nov 09, 2016 14:21
[2016-11-09] MEDS: AMIODARONE 200 MG TAB PO SCH ×2 (15:26→20:06)
[2016-11-09] MEDS: SENNOSIDES 8.6 MG TAB PO SCH (20:07)
[2016-11-10] VITALS (29 sets, daily range): BP systolic 140–167; BP diastolic 68–82; PULSE 62–122; RESP 16–20; TEMP 97.7–98.8; O2SAT 94–100
[2016-11-10] MEDS: ACETAMINOPHEN/HYDROcodone 325 MG/5 MG TAB PO PRN ×2 (00:07→07:09)
[2016-11-10] MEDS: PANTOPRAZOLE SOD 40 MG DELAYED RELEASE TAB PO SCH (06:00)
[2016-11-10] MEDS: INSULIN ASPART SUPPLEMENTAL SCALE SQ SCH ×4 (07:00→21:00)
[2016-11-10] MEDS: ALPRAZolam 0.25 MG TAB PO PRN ×2 (07:09→21:39)
[2016-11-10] MEDS: ONDANSETRON HCL 4 MG/2 ML VIAL IV PUSH PRN ×2 (07:13→15:48)
[2016-11-10 07:20] LABS: BICARBONATE 33.3 MEQ/L (21.0-32.0); MAGNESIUM 2.3 MG/DL (1.5-2.5); POTASSIUM 4.5 MEQ/L (3.5-5.1)
[2016-11-10] MEDS: AMIODARONE 200 MG TAB PO SCH ×2 (08:26→21:38)
[2016-11-10] MEDS: METOPROLOL TARTRATE 25 MG TAB PO SCH ×2 (08:27→21:39)
[2016-11-10] MEDS: DOCUSATE SODIUM 100 MG CAP PO SCH ×2 (09:00→21:37)
[2016-11-10] MEDS: MAGNESIUM HYDROXIDE SUSP 30 ML CUP PO SCH (09:00)
[2016-11-10] MEDS: POLYETHYLENE GLYCOL 17 GM PKG PO SCH (10:30)
[2016-11-10] MEDS: ASPIRIN 81 MG CHEW TAB PO SCH (12:07)
[2016-11-10] MEDS: MULTIVITAMINS/MINERALS THERAPEUTIC TAB PO SCH (12:07)
[2016-11-10] MEDS: METOCLOPRAMIDE HCL 10 MG/2 ML VIAL IV PRN (14:24)
[2016-11-10] MEDS ORDERED: OXYGENTANK NAS.CANULA (17:16)
[2016-11-10] MEDS ORDERED: WALKER WHEELS/F1 MIS (17:16)
[2016-11-10] MEDS ORDERED: MISC-163 (17:16)
--- NOTE | 2016-11-10 17:23 | PD.CAR.PN ---
CVT Progress Note CVT: POD #: 3 Subjective/Hospital Course: 66/ female with severe / eval in our UF office / elective Mini AVR PMH: morbid obesity BMI 53, anxiety, HTN, recent UTI ( on bactrim) surgery : 11/06 Mini AVR #23mm mosaic tissue valve extubated after surgery crystalloid 3000/ 750cc cell saver, EBL 250cc 11/07 up in chair, doing well , weaned off bety gtt this am recheck UA, then dc cain cath will need dietary consult aggressive pulm toileting 11/08 repeat UA ok did not want cian removed last evening, 2/2 severe nausea had some nausea and vomiting this am, some improvement with antiemetics eval meds hold amiodarone for now dc cain cath, ambulate / + 8 kg/ will need diuresis./ but will hold off for now with nausea/ vomiting chest tube 130cc/ 12 re-eval for possible removal later today 11/09 #24cm chest tube removed/ # [address]/ vaseline gauze dressing applied still has small air leak, CXR no PTX this am / on suction pt had episode of afib last pm, resume po amiodarone recheck lytes in am gentle diuresis , still has some intermittent nausea 11/10 pt very emotional , still having some nausea will decrease amiodarone and narcotics, ultram for pain , check labs in am Klonopin at night for sleep , anxiety gentle diuresis did not pass 02 walk test will need 02 at home may need outpt workup for sleep study eval for possible dc over the weekend Objective: GENERAL: SKIN: Warm and dry.incision intact and well approximated left chest/ dressing to chest tube sites HEAD: Normocephalic. EYES: No scleral icterus. No injection or drainage. NECK: Supple, trachea midline. No JVD or lymphadenopathy. CARDIOVASCULAR: Regular rate and rhythm without murmurs, gallops, or rubs. RESPIRATORY: diminished in bases Breath sounds equal bilaterally. No accessory muscle use. GASTROINTESTINAL: Abdomen soft, non-tender, nondistended. MUSCULOSKELETAL: No cyanosis, or edema. BACK: Nontender without obvious deformity. No CVA tenderness. Vital Signs Date Time Temp Pulse Resp B/P Pulse Ox O2 Delivery O2 Flow Rate FiO2 11/10/16 07:38 95 Nasal Cannula 1.00 11/10/16 07:34 97.7 68 16 141/68 100 11/10/16 07:30 95 Nasal Cannula 2.00 11/10/16 07:30 116 11/10/16 07:30 98.8 116 20 167/82 95 11/10/16 05:00 66 11/10/16 04:00 70 11/10/16 03:38 100 Nasal Cannula 3.00 11/10/16 03:00 71 11/10/16 03:00 62 11/10/16 02:00 68 11/10/16 01:00 84 11/10/16 00:23 98.2 72 18 151/69 99 11/10/16 00:00 62 11/09/16 23:00 64 11/09/16 22:00 64 11/09/16 21:00 70 11/09/16 20:42 100 Nasal Cannula 3.00 11/09/16 20:30 150/66 11/09/16 20:29 100 Nasal Cannula 3.00 11/09/16 20:28 98.1 67 20 164/86 100 11/09/16 20:00 78 11/09/16 19:00 80 11/09/16 18:01 88 Labs: Laboratory Tests Test 11/10/16 05:55 Sodium Level 139 MEQ/L (136-145) Potassium Level 4.5 MEQ/L (3.5-5.1) Chloride Level 101 MEQ/L (98-107) Carbon Dioxide Level 33.3 MEQ/L (21.0-32.0) Anion Gap 5 MEQ/L (5-15) Blood Urea Nitrogen 29 MG/DL (7-18) Creatinine 0.89 MG/DL (0.50-1.00) Estimat Glomerular Filtration 64 ML/MIN (>89) Rate Random Glucose 109 MG/DL (74-106) Calcium Level 8.4 MG/DL (8.5-10.1) Magnesium Level 2.3 MG/DL (1.5-2.5) Result Diagram: 11/09/16 0450 11/10/16 0555 Telemetry: NSR (1) Aortic stenosis (2) S/P AVR (aortic valve replacement) Plan: ASA, BB , amiodarone left medial chest tube removed pulm toileting gentle diuresis today OOB, ambulate CM to eval discharge planning (3) Hypertension Plan: increase BB (4) Morbid obesity with BMI of 50.0-59.9, adult Plan: dietary consult heart healthy diet (5) Blood loss anemia Plan: > 9.5 HGB 10.9/ will monitor (6) Nausea & vomiting Plan: antiemetics/ decrease amiodarone, check amylase , lipase and lft in am Jennifer Shaikh Nov 10, 2016 17:23
[2016-11-10] MEDS ORDERED: POTASSIUM CHLORIDE 10 MEQ CONTROLLED RELEASE TAB PO ONE (17:30)
[2016-11-10] MEDS ORDERED: FUROSEMIDE 40 MG/4 ML VIAL IV PUSH ONE (17:30)
[2016-11-10] MEDS ORDERED: POTA10CA PO (17:34)
[2016-11-10] MEDS ORDERED: FURO1TAB60 PO (17:34)
[2016-11-10] MEDS ORDERED: ZOFR4TAB PO (17:34)
[2016-11-10] MEDS ORDERED: AMIO200T PO (17:34)
[2016-11-10] MEDS ORDERED: DOCU1CAP39 PO (17:34)
[2016-11-10] MEDS ORDERED: traMADol HCL 50 MG TAB PO PRN (18:00)
[2016-11-10] MEDS ORDERED: BISACODYL 10 MG SUPP RECTAL ONE (18:00)
[2016-11-10] MEDS ORDERED: clonazePAM 0.5 MG TAB PO PRN (18:00)
[2016-11-10] MEDS: SENNOSIDES 8.6 MG TAB PO SCH (21:37)
[2016-11-10] MEDS: traMADol HCL 50 MG TAB PO PRN (23:21)
[2016-11-11] VITALS (26 sets, daily range): BP systolic 117–153; BP diastolic 68–78; PULSE 66–140; RESP 16–20; TEMP 98.3–99; O2SAT 96–98
[2016-11-11 05:09] LABS: AUTOMATED NEUTROPHIL # 6.4 TH/MM3 (1.8-7.7); BASOPHIL # 0.1 TH/MM3 (0-0.2); EOSINOPHIL # 1.1 TH/MM3 (0-0.4); EOSINOPHIL % 11.4 % (0.0-4.0); HEMATOCRIT 29.7 % (35.0-46.0); HEMO FLAGS DIFF FINAL; LYMPH % 12.3 % (9.0-44.0); LYMPHOCYTE # 1.2 TH/MM3 (1.0-4.8); MEAN CELL VOLUME 83.4 FL (80.0-100.0); MEAN CORPUSCULAR HEMOGLOBIN 28.5 PG (27.0-34.0); MEAN CORPUSCULAR HGB CONC 34.1 % (32.0-36.0); MONO % 10.5 % (0.0-8.0); NEUT % 64.8 % (16.0-70.0); PLATELET COUNT 240 TH/MM3 (150-450); RED BLOOD COUNT 3.56 MIL/MM3 (4.00-5.30); RED CELL DISTRIBUTION WIDTH 14.9 % (11.6-17.2); WHITE BLOOD COUNT 9.9 TH/MM3 (4.0-11.0)
--- NOTE | 2016-11-11 05:21 | RADRPT ---
EXAM DATE/TIME: 11/11/2016 04:45 [place] COMPARISON: CHEST SINGLE AP, November 09, 2016, 4:15. INDICATIONS : Shortness of breath, possible pulmonary disease. MEDICAL HISTORY : Hypercholesterolemia. Hypertension SURGICAL HISTORY : None. ENCOUNTER: Subsequent ACUITY: 1 week PAIN SCORE: 0/10 LOCATION: Bilateral chest FINDINGS: Portable AP view of the chest demonstrates stable mild enlargement of the cardiac silhouette. Lungs a re underinflated and there is a stable opacity left base obscuring the left hemidiaphragm. No pneumot horax is visualized following right chest tube removal. CONCLUSION: Stable chest x-ray with nonspecific left basilar opacity and mild enlargement of the cardiac silhouet te. Hiren Hanna MD on November 11, 2016 at 5:19 Board Certified Radiologist. This report was verified electronically.
[2016-11-11 05:26] LABS: BICARBONATE 32.7 MEQ/L (21.0-32.0); POTASSIUM 4.1 MEQ/L (3.5-5.1)
[2016-11-11 05:28] LABS: INDIRECT BILIRUBIN 0.4 MG/DL (0.0-0.8); TOTAL BILIRUBIN ADULT 0.5 MG/DL (0.2-1.0)
[2016-11-11] MEDS: PANTOPRAZOLE SOD 40 MG DELAYED RELEASE TAB PO SCH (05:54)
[2016-11-11] MEDS: INSULIN ASPART SUPPLEMENTAL SCALE SQ SCH ×4 (05:55→21:13)
[2016-11-11] MEDS: ONDANSETRON HCL 4 MG/2 ML VIAL IV PUSH PRN (08:42)
[2016-11-11] MEDS: POLYETHYLENE GLYCOL 17 GM PKG PO SCH (08:42)
[2016-11-11] MEDS: MAGNESIUM HYDROXIDE SUSP 30 ML CUP PO SCH (08:42)
[2016-11-11] MEDS: AMIODARONE 200 MG TAB PO SCH ×2 (08:43→21:12)
[2016-11-11] MEDS: DOCUSATE SODIUM 100 MG CAP PO SCH ×2 (08:43→21:12)
[2016-11-11] MEDS: ASPIRIN 81 MG CHEW TAB PO SCH (08:43)
[2016-11-11] MEDS: METOPROLOL TARTRATE 25 MG TAB PO SCH (08:43)
[2016-11-11] MEDS: MULTIVITAMINS/MINERALS THERAPEUTIC TAB PO SCH (08:43)
--- NOTE | 2016-11-11 09:47 | PD.CAR.PN ---
CVT Progress Note Subjective/Hospital Course: 66/ female with severe / eval in our UF office / elective Mini AVR PMH: morbid obesity BMI 53, anxiety, HTN, recent UTI ( on bactrim) surgery : 11/06 Mini AVR #23mm mosaic tissue valve extubated after surgery crystalloid 3000/ 750cc cell saver, EBL 250cc 11/07 up in chair, doing well , weaned off bety gtt this am recheck UA, then dc cain cath will need dietary consult aggressive pulm toileting 11/08 repeat UA ok did not want cain removed last evening, 2/2 severe nausea had some nausea and vomiting this am, some improvement with antiemetics eval meds hold amiodarone for now dc cain cath, ambulate / + 8 kg/ will need diuresis./ but will hold off for now with nausea/ vomiting chest tube 130cc/ 12 re-eval for possible removal later today 11/09 #24cm chest tube removed/ # [address]/ vaseline gauze dressing applied still has small air leak, CXR no PTX this am / on suction pt had episode of afib last pm, resume po amiodarone recheck lytes in am gentle diuresis , still has some intermittent nausea 11/10 pt very emotional , still having some nausea will decrease amiodarone and narcotics, ultram for pain , check labs in am Klonopin at night for sleep , anxiety gentle diuresis did not pass 02 walk test will need 02 at home may need outpt workup for sleep study eval for possible dc over the weekend 11/11 Doing well Constipated Likely discharge home in am with O2 Objective: Vital Signs Date Time Temp Pulse Resp B/P Pulse Ox O2 Delivery O2 Flow Rate FiO2 11/11/16 08:47 98 Nasal Cannula 3.00 11/11/16 08:47 98.4 124 18 117/76 98 11/11/16 04:00 76 11/11/16 03:59 100 Nasal Cannula 3.00 11/11/16 03:00 68 11/11/16 02:00 66 11/11/16 01:00 66 11/11/16 00:15 100 Nasal Cannula 3.00 11/11/16 00:13 98.7 67 16 141/68 96 11/11/16 00:00 70 11/10/16 23:00 66 11/10/16 22:00 76 11/10/16 21:14 95 Nasal Cannula 2.00 11/10/16 21:11 98.5 79 16 149/74 96 11/10/16 21:08 96 Nasal Cannula 2.00 11/10/16 21:00 70 11/10/16 20:00 78 11/10/16 19:00 75 11/10/16 18:00 116 11/10/16 17:00 118 11/10/16 16:00 64 11/10/16 15:50 68 11/10/16 15:50 98.6 68 18 151/73 94 11/10/16 15:50 94 Nasal Cannula 2.00 11/10/16 15:00 68 11/10/16 14:00 64 11/10/16 13:00 64 11/10/16 12:00 66 11/10/16 11:00 94 Nasal Cannula 2.00 11/10/16 11:00 98.3 70 20 140/69 94 11/10/16 11:00 70 11/10/16 10:00 82 Labs: Laboratory Tests Test 11/11/16 04:35 White Blood Count 9.9 TH/MM3 (4.0-11.0) Red Blood Count 3.56 MIL/MM3 (4.00-5.30) Hemoglobin 10.1 GM/DL (11.6-15.3) Hematocrit 29.7 % (35.0-46.0) Mean Corpuscular Volume 83.4 FL (80.0-100.0) Mean Corpuscular Hemoglobin 28.5 PG (27.0-34.0) Mean Corpuscular Hemoglobin 34.1 % Concent (32.0-36.0) Red Cell Distribution Width 14.9 % (11.6-17.2) Platelet Count 240 TH/MM3 (150-450) Mean Platelet Volume 8.4 FL (7.0-11.0) Neutrophils (%) (Auto) 64.8 % (16.0-70.0) Lymphocytes (%) (Auto) 12.3 % (9.0-44.0) Monocytes (%) (Auto) 10.5 % (0.0-8.0) Eosinophils (%) (Auto) 11.4 % (0.0-4.0) Basophils (%) (Auto) 1.0 % (0.0-2.0) Neutrophils # (Auto) 6.4 TH/MM3 (1.8-7.7) Lymphocytes # (Auto) 1.2 TH/MM3 (1.0-4.8) Monocytes # (Auto) 1.0 TH/MM3 (0-0.9) Eosinophils # (Auto) 1.1 TH/MM3 (0-0.4) Basophils # (Auto) 0.1 TH/MM3 (0-0.2) CBC Comment DIFF FINAL Differential Comment Sodium Level 139 MEQ/L (136-145) Potassium Level 4.1 MEQ/L (3.5-5.1) Chloride Level 100 MEQ/L (98-107) Carbon Dioxide Level 32.7 MEQ/L (21.0-32.0) Anion Gap 6 MEQ/L (5-15) Blood Urea Nitrogen 26 MG/DL (7-18) Creatinine 0.88 MG/DL (0.50-1.00) Estimat Glomerular Filtration 64 ML/MIN (>89) Rate Random Glucose 101 MG/DL (74-106) Calcium Level 8.3 MG/DL (8.5-10.1) Total Bilirubin 0.5 MG/DL (0.2-1.0) Direct Bilirubin 0.1 MG/DL (0.0-0.2) Indirect Bilirubin 0.4 MG/DL (0.0-0.8) Aspartate Amino Transf 17 U/L (15-37) (AST/SGOT) Alanine Aminotransferase 16 U/L (10-53) (ALT/SGPT) Alkaline Phosphatase 67 U/L (45-117) Total Protein 6.0 GM/DL (6.4-8.2) Albumin 2.5 GM/DL (3.4-5.0) Amylase Level 43 U/L (25-115) Lipase 155 U/L (73-393) Result Diagram: 11/11/1643411/11/16434 (1) Aortic stenosis (2) S/P AVR (aortic valve replacement) Plan: ASA, BB , amiodarone left medial chest tube removed pulm toileting gentle diuresis today OOB, ambulate CM to eval discharge planning (3) Hypertension Plan: increase BB (4) Morbid obesity with BMI of 50.0-59.9, adult Plan: dietary consult heart healthy diet (5) Blood loss anemia Plan: > 9.5 HGB 10.9/ will monitor (6) Nausea & vomiting Plan: antiemetics/ decrease amiodarone, check amylase , lipase and lft in am Iva Tristan MD Nov 11, 2016 09:47
[2016-11-11] MEDS: ALPRAZolam 0.25 MG TAB PO PRN (13:00)
[2016-11-11] MEDS: PROCHLORPERAZINE INJ 10 MG/2 ML VIAL IV PRN (13:00)
[2016-11-11] MEDS ORDERED: METOPROLOL TARTRATE 25 MG TAB PO ONE (17:27)
[2016-11-11] MEDS: METOPROLOL TARTRATE 50 MG TAB PO SCH (21:12)
[2016-11-11] MEDS: SENNOSIDES 8.6 MG TAB PO SCH (21:12)
[2016-11-11] MEDS: traMADol HCL 50 MG TAB PO PRN (22:53)
[2016-11-12] VITALS (21 sets, daily range): BP systolic 123–146; BP diastolic 60–81; PULSE 62–104; RESP 17–18; TEMP 97.4–98.6; O2SAT 90–100
--- NOTE | 2016-11-12 00:08 | EKG ---
Date Performed: 11/11/2016 Time Performed: 10:54:22 PTAGE: 66 years EKG: Sinus tachycardia. Possible atrial flutter Inferior/lateral ST-T changes may be due to myoc ardial ischemia Abnormal ECG PREVIOUS TRACING : 11/07/2016 04.43 DOCTOR: Carrie Hebert Interpretating Date/Time 11/12/2016 00:07:14
[2016-11-12] MEDS: PANTOPRAZOLE SOD 40 MG DELAYED RELEASE TAB PO SCH (06:00)
[2016-11-12] MEDS: INSULIN ASPART SUPPLEMENTAL SCALE SQ SCH ×3 (06:52→16:00)
[2016-11-12] MEDS: MAGNESIUM HYDROXIDE SUSP 30 ML CUP PO SCH (08:59)
[2016-11-12] MEDS: POLYETHYLENE GLYCOL 17 GM PKG PO SCH (08:59)
[2016-11-12] MEDS: MULTIVITAMINS/MINERALS THERAPEUTIC TAB PO SCH (09:00)
[2016-11-12] MEDS: AMIODARONE 200 MG TAB PO SCH (09:00)
[2016-11-12] MEDS: METOPROLOL TARTRATE 50 MG TAB PO SCH (09:00)
[2016-11-12] MEDS: diphenhydrAMINE HCL 25 MG CAP PO PRN (09:00)
[2016-11-12] MEDS: DOCUSATE SODIUM 100 MG CAP PO SCH (09:00)
[2016-11-12] MEDS: ASPIRIN 81 MG CHEW TAB PO SCH (09:00)
--- NOTE | 2016-11-12 09:28 | PD.CAR.PN ---
CVT Progress Note Subjective/Hospital Course: 66/ female with severe / eval in our UF office / elective Mini AVR PMH: morbid obesity BMI 53, anxiety, HTN, recent UTI ( on bactrim) surgery : 11/06 Mini AVR #23mm mosaic tissue valve extubated after surgery crystalloid 3000/ 750cc cell saver, EBL 250cc 11/07 up in chair, doing well , weaned off bety gtt this am recheck UA, then dc cain cath will need dietary consult aggressive pulm toileting 11/08 repeat UA ok did not want cain removed last evening, 2/2 severe nausea had some nausea and vomiting this am, some improvement with antiemetics eval meds hold amiodarone for now dc cain cath, ambulate / + 8 kg/ will need diuresis./ but will hold off for now with nausea/ vomiting chest tube 130cc/ 12 re-eval for possible removal later today 11/09 #24cm chest tube removed/ # [address]/ vaseline gauze dressing applied still has small air leak, CXR no PTX this am / on suction pt had episode of afib last pm, resume po amiodarone recheck lytes in am gentle diuresis , still has some intermittent nausea 11/10 pt very emotional , still having some nausea will decrease amiodarone and narcotics, ultram for pain , check labs in am Klonopin at night for sleep , anxiety gentle diuresis did not pass 02 walk test will need 02 at home may need outpt workup for sleep study eval for possible dc over the weekend 11/11 Doing well Constipated Likely discharge home in am with O2 11/12 Doing well Discharge home Objective: Vital Signs Date Time Temp Pulse Resp B/P Pulse Ox O2 Delivery O2 Flow Rate FiO2 11/12/16 08:33 97 21 11/12/16 06:00 76 11/12/16 05:00 100 11/12/16 04:00 96 11/12/16 03:37 Nasal Cannula 2.00 40 11/12/16 03:35 98.2 90 144/70 98 11/12/16 03:00 95 11/12/16 02:00 98 11/12/16 01:00 100 11/12/16 00:00 104 11/11/16 23:33 96 Nasal Cannula 2.00 11/11/16 23:00 98.3 81 153/72 97 11/11/16 23:00 108 11/11/16 22:14 Nasal Cannula 2.00 11/11/16 22:00 112 11/11/16 21:00 118 11/11/16 20:00 99.0 135 20 117/69 96 11/11/16 20:00 136 11/11/16 20:00 96 Nasal Cannula 2.00 11/11/16 19:00 130 11/11/16 18:00 130 11/11/16 17:00 140 11/11/16 16:30 97 Nasal Cannula 3.00 11/11/16 16:30 98.3 123 18 138/78 97 11/11/16 16:00 118 11/11/16 15:00 122 11/11/16 14:00 116 11/11/16 13:00 116 11/11/16 12:00 114 11/11/16 11:30 114 18 128/70 98 11/11/16 11:30 98 Nasal Cannula 3.00 11/11/16 11:00 116 11/11/16 10:00 120 Result Diagram: 11/11/16 0435 11/11/16 0435 (1) Aortic stenosis (2) S/P AVR (aortic valve replacement) Plan: ASA, BB , amiodarone left medial chest tube removed pulm toileting gentle diuresis today OOB, ambulate CM to eval discharge planning (3) Hypertension Plan: increase BB (4) Morbid obesity with BMI of 50.0-59.9, adult Plan: dietary consult heart healthy diet (5) Blood loss anemia Plan: > 9.5 HGB 10.9/ will monitor (6) Nausea & vomiting Plan: antiemetics/ decrease amiodarone, check amylase , lipase and lft in am Iva Tristan MD Nov 12, 2016 09:28
--- NOTE | 2016-11-12 09:29 | HHI.DS ---
Discharge Summary Admission Date Nov 06, 2016 at 05:34 Discharge Date: Nov 12, 2016 Admitting Diagnosis CBC/BMP: 11/11/16 0435 11/11/16 0435 Significant Findings Laboratory Tests Test 11/10/16 11/11/16 05:55 04:35 Carbon Dioxide Level 33.3 MEQ/L 32.7 MEQ/L (21.0-32.0) (21.0-32.0) Blood Urea Nitrogen 29 MG/DL (7-18) 26 MG/DL (7-18) Estimat Glomerular Filtration 64 ML/MIN (>89) 64 ML/MIN (>89) Rate Random Glucose 109 MG/DL (74-106) Calcium Level 8.4 MG/DL 8.3 MG/DL (8.5-10.1) (8.5-10.1) Red Blood Count 3.56 MIL/MM3 (4.00-5.30) Hemoglobin 10.1 GM/DL (11.6-15.3) Hematocrit 29.7 % (35.0-46.0) Monocytes (%) (Auto) 10.5 % (0.0-8.0) Eosinophils (%) (Auto) 11.4 % (0.0-4.0) Monocytes # (Auto) 1.0 TH/MM3 (0-0.9) Eosinophils # (Auto) 1.1 TH/MM3 (0-0.4) Total Protein 6.0 GM/DL (6.4-8.2) Albumin 2.5 GM/DL (3.4-5.0) Hospital Course 66/ female with severe / eval in our office / elective Mini AVR PMH: morbid obesity BMI 53, anxiety, HTN, recent UTI ( on bactrim) surgery : 11/06 Mini AVR #23mm mosaic tissue valve extubated after surgery crystalloid 3000/ 750cc cell saver, EBL 250cc 11/07 up in chair, doing well , weaned off bety gtt this am recheck UA, then dc cain cath will need dietary consult aggressive pulm toileting 11/08 repeat UA ok did not want cain removed last evening, 2/2 severe nausea had some nausea and vomiting this am, some improvement with antiemetics eval meds hold amiodarone for now dc cain cath, ambulate / + 8 kg/ will need diuresis./ but will hold off for now with nausea/ vomiting chest tube 130cc/ 12 re-eval for possible removal later today 11/09 #24cm chest tube removed/ # [address]/ vaseline gauze dressing applied still has small air leak, CXR no PTX this am / on suction pt had episode of afib last pm, resume po amiodarone recheck lytes in am gentle diuresis , still has some intermittent nausea 11/10 pt very emotional , still having some nausea will decrease amiodarone and narcotics, ultram for pain , check labs in am Klonopin at night for sleep , anxiety gentle diuresis did not pass walk test will need 02 at home may need outpt workup for sleep study eval for possible dc over the weekend 11/11 Doing well Constipated Likely discharge home in am with O2 11/12 Doing well Discharge home Pt Condition on Discharge: Good Discharge Disposition: Disch w/ Home Health Serv Discharge Instructions DIET: Follow Instructions for: Heart Healthy Diet Activities you can perform: Full Weight Bearing, Shower Only-No Bath Activities to avoid: Lifting/Bending, Strenuous Activity, Driving Additional Activity Instructio: no lifting > 8lbs or gallon of milk Follow up Referrals: Cardiology with [facility] Renita Castellanos MD PCP Follow-up with Alexandra Barreto Md Surgical with [facility] Medications: 3-in-1 Bedside Toilet (3-in-1 Bedside Toilet) 1 Mis Mis 1 EA .ROUTE DIRECTED #1 EA Furosemide (Lasix) 40 Mg Tab 40 MG PO DAILY edema #7 Ref 1 TAB Ondansetron (Zofran) 4 Mg Tab 4 MG PO Q12HR PRN NAUSEA OR VOMITING #14 Ref 0 TAB Oxygen tank (Oxygen tank) 1 Ea Tank 2 LITER AJ.CANULA CONTINUOUS Oxygen Concentrator Portable Gaseous 2 L/min via Nasal Cannula Continuous For 99 months HYPOXEMIA PREVENTION #1 CYLINDER Potassium Chloride ER (Potassium Chloride ER) 10 Meq Cap 10 MEQ PO DAILY Electrolyte Replacement #7 Ref 1 CAP Walker with Front Wheels (Walker with Front Wheels) 1 Mis Mis 1 EA .ROUTE DIRECTED #1 Ref 0 EA Amiodarone (Amiodarone) 200 Mg Tab 200 MG PO Q12HR heart rhythm #28 Ref 0 TAB Docusate Sodium (Dok) 100 Mg Cap 100 MG PO BID Constipation #60 Ref 0 CAP Continued Medications: Aspirin (Aspirin) 81 Mg Tabdr 81 MG PO DAILY TAB Atenolol (Atenolol) 50 Mg Tab 50 MG PO HS Blood Pressure Management #30 Ref 0 TAB Cetirizine HCl (Wal-Zyr) 10 Mg Cap 10 MG PO DAILY Lisinopril (Lisinopril) 10 Mg Tab 10 MG PO HS #30 Ref 0 TAB Discontinued Medications: Sulfamethoxazole-Trimethoprim (Bactrim DS) 800-160 Mg Tab 1 TAB PO BID Infection Ref 0 TAB Iva Tristan MD Nov 12, 2016 09:29
[2016-11-12] MEDS ORDERED: BISACODYL 10 MG SUPP RECTAL ONE (12:15)
[2016-11-12] MEDS: ALPRAZolam 0.25 MG TAB PO PRN (12:22)
== END 2016-11-12 18:15 | disposition home health service (06) | DRG 220 ==
LOC: HSDI 11-06 05:34 → HCVR 11-06 14:40 → HCIN 11-07 13:24
PROVIDERS: ADMIT Thoracic Surgery (Cardiothoracic Vascular Surgery); ATTEND Thoracic Surgery (Cardiothoracic Vascular Surgery)
PROC: B246ZZ4 Ultrasonography of Right and Left Heart, Transesophageal (ICD-10-PCS; 2016-11-06)
PROC: 3E0T3CZ (ICD-10-PCS; 2016-11-06)
PROC: 02RF08Z Replacement of Aortic Valve with Zooplastic Tissue, Open Approach (ICD-10-PCS; principal; 2016-11-06 07:50)
PROC: 5A1221Z Performance of Cardiac Output, Continuous (ICD-10-PCS; 2016-11-06 07:50)
DX: I35.0 Nonrheumatic aortic (valve) stenosis (principal); Z68.43 Body mass index [BMI] 50.0-59.9, adult; I48.91 Unspecified atrial fibrillation; J93.82 Other air leak; E66.01 Morbid (severe) obesity due to excess calories; E78.5 Hyperlipidemia, unspecified; I10 Essential (primary) hypertension; F41.9 Anxiety disorder, unspecified; R11.2 Nausea with vomiting, unspecified; D50.0 Iron deficiency anemia secondary to blood loss (chronic); K59.00 Constipation, unspecified; Z82.49 Family history of ischemic heart disease and other diseases of the circulatory system; Z87.891 Personal history of nicotine dependence
CPT/HCPCS: 71010; 76937; 80048; 80076; 81001; 82150; 82948; 83690; 83735; 85014; 85025; 85027; 86850; 86900; 86901; 86920; 88305; 88311; 93005; 93318; 94002; 94150; 94620; 94640; 94664; 94667; 94668; C9290; J0131; J0690; J0780; J1100; J1644; J1815; J1940; J2150; J2250; J2270; J2370; J2405; J2720; J2765; J3010; J3370; J3475; J3480; J7120; P9045; P9047

== ENCOUNTER → 2016-10-27 | Outpatient (CLI) | payer MEDICARE ==
[~2016-10-27] MED LIST: AMIO200T PO; ASPI1TAB69 PO; ASPI81TA82 PO; ATEN-102 PO; ATEN50TA PO; BACT800T5 PO; BENA25TA8 PO; CETI1CAP2 PO; DOCU1CAP39 PO; FURO1TAB60 PO; LISI10TA3 PO; MELA5TAB8 PO; MISC-163; MOTR200T PO; OXYGENTANK NAS.CANULA; POTA10CA PO; WALKER WHEELS/F1 MIS; ZOCO40TA PO; ZOFR4TAB PO
[2016-10-27 13:10] LABS: AUTOMATED NEUTROPHIL # 7.4 TH/MM3 (1.8-7.7); BASOPHIL # 0.1 TH/MM3 (0-0.2); BASOPHIL % 0.9 % (0.0-2.0); EOSINOPHIL # 0.6 TH/MM3 (0-0.4); EOSINOPHIL % 5.1 % (0.0-4.0); HEMATOCRIT 43.9 % (35.0-46.0); HEMO FLAGS DIFF FINAL; LYMPHOCYTE # 2.6 TH/MM3 (1.0-4.8); MEAN CELL VOLUME 83.4 FL (80.0-100.0); MEAN CORPUSCULAR HEMOGLOBIN 27.5 PG (27.0-34.0); MONO % 8.2 % (0.0-8.0); NEUT % 63.8 % (16.0-70.0); PLATELET COUNT 286 TH/MM3 (150-450); RED BLOOD COUNT 5.27 MIL/MM3 (4.00-5.30); RED CELL DISTRIBUTION WIDTH 14.7 % (11.6-17.2); WHITE BLOOD COUNT 11.6 TH/MM3 (4.0-11.0)
[2016-10-27 13:20] LABS: BLOOD, URINE NEG (NEG); COMMENT (UR) CULT NOT INDICATED; CULTURE IF INDICATED CULT NOT INDICATED; GLUCOSE,URINE NEG (NEG); KETONE, URINE NEG (NEG); MUCUS URINE FEW /lpf (OCC); NITRITE,URINE NEG (NEG); URINE COLOR YELLOW (YELLW/STRAW)
[2016-10-27 13:24] LABS: APTT (PATIENT) 27.4 SEC (24.3-30.1); PROTHROMBIN TIME - PATIENT 10.8 SEC (9.8-11.6)
[2016-10-27 13:38] LABS: ANION GAP 8 MEQ/L (5-15); BICARBONATE 29.3 MEQ/L (21.0-32.0); BLOOD UREA NITROGEN 30 MG/DL (7-18); CHLORIDE 104 MEQ/L (98-107); GLOMERULAR FILTRATION RATE 46 ML/MIN (>89); GLUCOSE,FASTING 102 MG/DL (74-99); POTASSIUM 4.7 MEQ/L (3.5-5.1); SODIUM (NA) 141 MEQ/L (136-145)
--- NOTE | 2016-10-27 13:52 | RADRPT ---
EXAM DATE/TIME: 10/27/2016 13:38 [facility] COMPARISON: No previous studies available for comparison. INDICATIONS : Evaluate for pneumonia, pneumothorax or communicable disease. pre op for atrial valve replacement 3-02-26. MEDICAL HISTORY : None. SURGICAL HISTORY : None. ENCOUNTER: Initial ACUITY: 1 day PAIN SCORE: 0/10 LOCATION: Bilateral chest FINDINGS: The lungs are clear. The heart is minimally enlarged. The pulmonary vascularity is normal. There is n o evidence for infiltrate or failure. The portion of the bony skeleton visualized is unremarkable. CONCLUSION: Compensated cardiomegaly otherwise negative Marcos Emery MD FACR on October 27, 2016 at 13:50 Board Certified Radiologist. This report was verified electronically.
--- NOTE | 2016-10-27 14:09 | RADRPT ---
EXAM DATE/TIME: 10/27/2016 13:18 [facility] COMPARISON: No previous studies available for comparison. INDICATIONS : Preop cardiac surgery. MEDICAL HISTORY : Hypertension. Hypercholesterolemia. SURGICAL HISTORY : Cholecystectomy. Tonsillectomy. Left breast surgery. ENCOUNTER: Initial ACUITY: 1 day PAIN SCORE: 0/10 LOCATION: Bilateral neck PEAK SYSTOLIC VELOCITIES (cm/sec): ICA/CCA RATIO: Right: 1.0 Left: 0.9 ICA: Right: 85 Left: 94 CCA: Right: 86 Left: 102 ECA: Right: 79 Left: 90 VERTEBRAL: Right: 38 antegrade Left: 42 antegrade Elevated flow velocities and ICA/CCA ratios have been found to correlate with increased degrees of vessel stenosis, calculated as percentage of diameter relative to a normal segment of distal ICA/CCA FINDINGS: RIGHT CAROTID: There is minimal plaque at the right carotid bulb region. No significant stenosis is visualized. The waveforms are within normal limits. LEFT CAROTID: No significant stenosis is visualized. The waveforms are within normal limits. VERTEBRAL ARTERIES: Antegrade flow is seen in both vertebral arteries. MISCELLANEOUS: None. CONCLUSION: No significant stenosis. Hiren Pantoja MD on October 27, 2016 at 14:05 Board Certified Radiologist. This report was verified electronically.
[2016-10-27 14:14] LABS: HEMOGLOBIN A1a 1.1 %; HEMOGLOBIN A1b 1.6 %; HEMOGLOBIN Ao 84.7 %; HEMOGLOBIN LA1C 2.1 %; HEMOGLOBIN P3 4.1 %
--- NOTE | 2016-10-27 15:31 | EKG ---
Date Performed: 10/27/2016 Time Performed: 10:56:43 PTAGE: 66 years EKG: Sinus rhythm POSSIBLE LEFT ATRIAL ENLARGEMENT POSSIBLE LEFT VENTRICULAR HYPERTROPHY NONSPECIFIC T-WAVE ABNORMALIT Y ABNORMAL ECG PREVIOUS TRACING : 02/24/2015 14.35 Compared to previous tracing, the patient most likely now m eets criteria for LVH and nonspecific ST-T wave changes. DOCTOR: Rose Mary Webber Interpretating Date/Time 10/27/2016 15:31:02
--- NOTE | 2016-11-03 12:01 | RSPPFT ---
DATE OF PROCEDURE: 10/27/16 COMMENTS: Spirometry with FVC of 3.5 at 102% of predicted, FEV1 of 2.8 at 104%, FEV1/FVC ratio is normal. Flow is normal at FEF 25-75. Flow volume loop suggests a normal pattern. IMPRESSION: 1. Normal spirometry. 2. Post-bronchodilator study was not done.
== END ==
LOC: CPRE 10:20
PROVIDERS: ATTEND Thoracic Surgery (Cardiothoracic Vascular Surgery)
DX: Z01.810 Encounter for preprocedural cardiovascular examination (principal); Z01.818 Encounter for other preprocedural examination; I51.7 Cardiomegaly; Z01.812 Encounter for preprocedural laboratory examination; Z01.811 Encounter for preprocedural respiratory examination; R94.31 Abnormal electrocardiogram [ECG] [EKG]
CPT/HCPCS: 36415; 71020; 80048; 81001; 83036; 85025; 85610; 85730; 93005; 93880; 94010

== ENCOUNTER → 2016-11-01 | Outpatient (CLI) | payer MEDICARE ==
[~2016-11-01] MED LIST changes: -ASPI81TA82 PO; -ATEN-102 PO; -BENA25TA8 PO; -MELA5TAB8 PO; -MOTR200T PO; -ZOCO40TA PO
[2016-11-01 18:16] LABS: MRSA PCR NEGATIVE (NEGATIVE); STAPH AUREUS PCR NEGATIVE (NEGATIVE)
== END ==
LOC: CPRE 12:52
PROVIDERS: ATTEND Thoracic Surgery (Cardiothoracic Vascular Surgery)
DX: Z01.812 Encounter for preprocedural laboratory examination (principal); I25.10 Atherosclerotic heart disease of native coronary artery without angina pectoris
CPT/HCPCS: 87640; 87641

== ENCOUNTER → 2017-02-06 | Outpatient (CLI) | payer MEDICARE ==
[~2017-02-06] MED LIST changes: -BACT800T5 PO
[2017-02-06 12:03] LABS: AUTOMATED NEUTROPHIL # 7.2 TH/MM3 (1.8-7.7); BASOPHIL # 0.1 TH/MM3 (0-0.2); BASOPHIL % 0.7 % (0.0-2.0); EOSINOPHIL # 0.6 TH/MM3 (0-0.4); EOSINOPHIL % 6.3 % (0.0-4.0); HEMATOCRIT 41.5 % (35.0-46.0); HEMO FLAGS DIFF FINAL; LYMPH % 14.3 % (9.0-44.0); LYMPHOCYTE # 1.4 TH/MM3 (1.0-4.8); MEAN CELL VOLUME 80.3 FL (80.0-100.0); MEAN CORPUSCULAR HGB CONC 33.7 % (32.0-36.0); MONO % 6.9 % (0.0-8.0); NEUT % 71.8 % (16.0-70.0); PLATELET COUNT 335 TH/MM3 (150-450); RED BLOOD COUNT 5.17 MIL/MM3 (4.00-5.30); RED CELL DISTRIBUTION WIDTH 16.4 % (11.6-17.2)
[2017-02-06 12:46] LABS: ANION GAP 5 MEQ/L (5-15); AST (GOT) 12 U/L (15-37); BICARBONATE 32.8 MEQ/L (21.0-32.0); BLOOD UREA NITROGEN 19 MG/DL (7-18); CHLORIDE 102 MEQ/L (98-107); GLOMERULAR FILTRATION RATE 55 ML/MIN (>89); GLUCOSE,FASTING 102 MG/DL (74-99); POTASSIUM 4.1 MEQ/L (3.5-5.1); SODIUM (NA) 140 MEQ/L (136-145)
[2017-02-06 12:58] LABS: ALKALINE PHOSPHATASE 89 U/L (45-117); ALT (GPT) 15 U/L (10-53); HDL CHOLESTEROL 41.5 MG/DL (40.0-60.0); LDL CHOLESTEROL 180 MG/DL (0-99); TOTAL BILIRUBIN ADULT 0.4 MG/DL (0.2-1.0)
[2017-02-06 14:07] LABS: HEMOGLOBIN A1a 1.3 %; HEMOGLOBIN A1b 1.7 %; HEMOGLOBIN Ao 84.8 %
== END ==
LOC: CLAB 11:32
PROVIDERS: ATTEND Family Medicine
DX: I10 Essential (primary) hypertension (principal); E78.5 Hyperlipidemia, unspecified; R73.09 Other abnormal glucose
CPT/HCPCS: 36415; 80053; 80061; 83036; 85025